=== PATIENT | female | born 1990 | race Caucasian/White ===

== ENCOUNTER → 2018-07-13 | Outpatient (CLI) | payer BC | LOC: DL.US 10:53 | PROVIDERS: ATTEND Family Medicine | DX: Z34.82 Encounter for supervision of other normal pregnancy, second trimester (principal); Z3A.20 20 weeks gestation of pregnancy | CPT/HCPCS: 76805 ==

== ENCOUNTER 2018-11-28 07:40 | Inpatient (IN) | payer BC ==
[2018-11-28] MEDS ORDERED: Tranexamic Acid 1,000 MG in Sodium Chloride 0.9% 100 ML IV PRN (09:45)
[2018-11-28] MEDS ORDERED: Sodium Chloride 0.9% 10 ML Syringe FLUSH PRN (09:45)
[2018-11-28] MEDS ORDERED: Lidocaine 1% 30 ML SDV INJECT PRN (09:45)
[2018-11-28] MEDS ORDERED: Carboprost Tromethamine 250 MCG/1 ML Amp IM PRN (09:45)
[2018-11-28] MEDS ORDERED: Misoprostol 400 MCG (4 X 100 MCG TAB) RECTAL PRN (09:45)
[2018-11-28] MEDS ORDERED: Oxytocin/Normal Saline 30 UNIT/500 ML BAG IV SCH (09:45)
[2018-11-28] MEDS ORDERED: Methylergonovine 0.2 MG/1 ML Amp IM PRN (09:45)
[2018-11-28] MEDS ORDERED: Lactated Ringers 500 ML IV ONE (09:45)
[2018-11-28] MEDS ORDERED: Ondansetron 4 MG/2 ML SDV IV PRN (09:45)
[2018-11-28] MEDS ORDERED: Lactated Ringers 1,000 ML IV SCH (09:45)
[2018-11-28] MEDS ORDERED: Nalbuphine 10 MG/1 ML Vial IM ONE ×2 (09:49→12:26)
--- NOTE | 2018-11-28 13:44 | HP ---
CHIEF COMPLAINT: Increased force and frequency of contractions. HISTORY OF PRESENT ILLNESS: A 27-year-old, 2, para 1-0-0-1, currently at 39-5/7 weeks' intrauterine based on last menstrual period, who presented to Labor and Delivery earlier this morning reporting onset of contractions around 2 o'clock this morning. A small amount of blood in the spotting. No heavy bleeding. No leakage of fluid. Good movement. Contractions reported every 5 to 10 minutes. Upon arrival, [place] showed her with contractions actually every 3 to 5 minutes, and she was admitted initially to observation and was making positive cervical change, admitted to Labor and Delivery with confirmed active stage I labor. No symptoms of preeclampsia. No other acute concerns. PAST MEDICAL HISTORY: Varicose veins, varicella equivocal, blood type A positive, rubella immune, group B strep negative, history of postanesthesia urinary retention, acne rosacea, depression and anxiety, and history of mono. LABORATORY DATA: Blood type A positive. Antibody screen negative. Rubella immune. Syphilis serology nonreactive. Urine culture, multiple isolates. Hepatitis B negative. HIV negative. Gonorrhea and chlamydia negative. TSH normal at 0.87. Hepatitis C nonreactive. Wet prep positive for yeast and treated. Glucose tolerance test normal at 103 and group B strep test is negative. PRIOR OBSTETRICAL HISTORY: Delivered [birth year]/11/2016 at 40-3/7 weeks' gestation, term male infant, weighing 3320 g, 7 pounds 5.1 ounces with epidural anesthesia. He was born in [place] with Dr. Zofia Olguin and there were no complications. care this has been excellent. The patient weaned off her Zoloft about 1 month ago and has had no other new acute problems. PAST SURGICAL HISTORY: Appendectomy and ovarian cyst removal. FAMILY HISTORY: Mother with thyroid disease. Father, no known diseases. Maternal grandfather with heart disease and diabetes. Maternal grandmother, no known diseases. Brother and 1 sister, no known diseases. Other sister, labor. Paternal grandmother with colon cancer. Paternal grandfather with heart disease. Maternal aunt with thyroid disease. Cousins on the father of the baby's side with multiple births. Another cousin with labor. Another sister with no known diseases. No family history of any defects, anesthesia problems, bleeding problems, clotting disorder, cystic fibrosis, seizures, or Down syndrome. SOCIAL HISTORY: The patient is . They have 1 son together. 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 , Neeraj, is a loan secretary at [employer]. They do not have any indoor pets. MEDICATIONS: vitamin. ALLERGIES: Bactrim causes a rash. REVIEW OF SYSTEMS: No headaches, blurry vision, hearing or visual abnormalities, chest pain, shortness of breath, fever, chills, nausea, vomiting, diarrhea, constipation, skin rashes, or other acute concerns. PHYSICAL EXAMINATION: Vital Signs: Temperature 98.2, pulse 80, blood pressure 138/72, respiratory rate of 18, O2 saturations 98% on room air. HEENT: Grossly unremarkable. Neck: Supple without adenopathy. Heart: Regular without murmur. Lungs: Clear to auscultation bilaterally. Abdomen: Gravid, soft, nontender. Baby is vertex. heart tones are at baseline of 125 beats per minute. Moderate [id number] variability. Excellent accelerations. [place] shows contractions about every 2 to 4 minutes. Varying strength. Cervix at this time 7 cm dilated, 90% effaced, +1 station. Bag of water is intact. Extremities: No edema, erythema, or tenderness. ASSESSMENT: 1. Active stage I labor. 2. 2, para 1-0-0-1, at 39-5/7 weeks. 3. Blood type A positive, rubella immune, group B strep negative. 4. History of postanesthesia urinary retention. 5. Varicella equivocal. 6. History of anxiety and depression. PLAN: Allow her to continue through natural labor at this time and allow the bag of water to remain intact as part of her pain management. Nubain when appropriate. Discussed with Anesthesia, and the patient may have a nonnarcotic containing intrathecal which will be less effective, however, would still provide some relief if needed. Otherwise, we will be anticipating a vaginal delivery. We will change the plan as needed if problems or concerns should arise. May end up with artificial rupture when she is further along in labor if it will expedite things without causing expectation of increased pain. [facility] /[id number] MTDJoselyn
[2018-11-28] MEDS ORDERED: Benzocaine/Menthol 20%-0.5% Spray 56 GM Canister TOP PRN (16:31)
[2018-11-28] MEDS ORDERED: Simethicone 80 MG Tab.Chew PO PRN (16:31)
[2018-11-28] MEDS: Docusate Sodium 100 MG Cap PO PRN (19:16)
[2018-11-28] MEDS: Ibuprofen 800 MG Tab PO PRN (19:17)
[2018-11-28] MEDS: Acetaminophen 325 MG Tab PO PRN (23:32)
--- NOTE | 2018-11-29 02:23 | DEL ---
DATE: 11/28/2018 PREPROCEDURE DIAGNOSES: 1. Active stage I labor. 2. 2, para 1-0-0-1, at 39 and 5/7 weeks. 3. Blood type A positive, rubella immune, group B strep negative. 4. History of post-anesthesia urinary retention. 5. Varicella equivocal. 6. History of anxiety and depression. POSTPROCEDURE DIAGNOSES: 1. Active stage I labor. 2. 2, now para 2-0-0-2, at 39 and 5/7 weeks. 3. Blood type A positive, rubella immune, group B strep negative. 4. History of post-anesthesia urinary retention. 5. Varicella equivocal. 6. History of anxiety and depression. 7. Status post spontaneous vaginal delivery with only Nubain for pain management. 8. Second-degree perineal laceration and left-sided vaginal sidewall laceration with bleeding varicose vein. BRIEF HISTORY: A 27-year-old female with the above-listed diagnoses, presented to the hospital with spontaneous onset of labor, allowed her to progress naturally. She did have 1 dose of IM Nubain for pain management and contractions became irregular, so a small amount of Pitocin was added to regulate the contraction pattern. After that, she went on to spontaneous rupture of membranes with clear fluid after being about 9 cm and was tolerating things well. I was then called over for delivery as the patient was starting to involuntarily push, and after about 3 contractions, she had a successful vaginal delivery as detailed below. DETAILS: With the patient in dorsal lithotomy position, she delivered a viable female infant in the TRENT position over intact perineum. Baby was dried, stimulated, and placed up on mother's abdomen. Three-vessel umbilical cord was doubly clamped and cut, and cord blood sample obtained. Labia and vagina inspected, and she was found to have a second-degree laceration, which was anesthetized with lidocaine. Vaginal sidewall laceration was also identified with a bleeding varicosity, so this area was anesthetized and addressed to make it hemostatic. The sidewall laceration was repaired with a 3-0 Vicryl figure-of - eight suture to control bleeding and then a running suture with 3-0 Vicryl in the usual fashion. Placenta was then delivered by gentle cord traction and concomitant uterine massage, inspected, and intact. Second-degree perineal laceration was then repaired in usual fashion with 3-0 Vicryl, and the patient tolerated all of the procedures well. ESTIMATED BLOOD LOSS: 500 mL. COMPLICATIONS: None. FINDINGS: Viable female . Weight 4070g and Apgars 9 and 9. DISPOSITION: Mother and baby to stay in the room to initiate . [facility] /[id number] MTDJoselyn
[2018-11-29] MEDS: Ibuprofen 800 MG Tab PO PRN ×3 (03:25→20:53)
[2018-11-29] MEDS: Docusate Sodium 100 MG Cap PO PRN ×2 (09:06→20:53)
[2018-11-29] MEDS: Prenatal Multivitamin with Calcium/Folic Acid/Iron Tab PO SCH (09:06)
[2018-11-29] MEDS: Ferrous Sulfate 325 MG Tab PO SCH (09:06)
[2018-11-29] MEDS: Acetaminophen 325 MG Tab PO PRN (09:09)
--- NOTE | 2018-11-29 11:17 | PN ---
DATE: 11/29/2018 SUBJECTIVE: Postvaginal delivery day #1, doing well, ambulating tolerating regular diet, voiding without difficulties. Has not had a bowel movement. Reports pain is well controlled and less intense than after her first delivery. She is very happy with how things are going so far. Currently, having some difficulties with . Reports baby does not really open her mouth sufficiently, and then when she does get on the nipple, she tends to bite, and the patient is starting to have some nipple pain. Otherwise, denies any concerns. No shortness of breath or chest pain. Bleeding has been minimal. No foul-smelling drainage. No uterine tenderness. No other concerns. OBJECTIVE: Vital Signs: Temperature is 98.3, pulse 87, blood pressure 113/80, respiratory rate of 16. Heart: Regular without murmur. Lungs: Clear to auscultation bilaterally. Abdomen: Soft, nontender. Fundus is firm and below the umbilicus. Extremities: No edema, erythema, or tenderness. ASSESSMENT: 1. Status post vaginal delivery day #1. 2. 2, now para 2-0-0-2. 3. History of depression and anxiety, currently doing well. 4. Varicella equivocal. 5. Status post vaginal delivery with second-degree vaginal laceration repairs. PLAN: Continue routine cares. Anticipate discharge home tomorrow. We will be requesting a window covering sales consultant to stop by with her today and help her with getting baby to latch more sufficient. Mother's questions answered. [facility] /[id number]
[2018-11-30] MEDS: Ibuprofen 800 MG Tab PO PRN (08:30)
[2018-11-30] MEDS: Prenatal Multivitamin with Calcium/Folic Acid/Iron Tab PO SCH (08:30)
[2018-11-30] MEDS: Ferrous Sulfate 325 MG Tab PO SCH (08:30)
[2018-11-30] MEDS: Docusate Sodium 100 MG Cap PO PRN (08:30)
== END 2018-11-30 11:20 | disposition home or self-care (01) | DRG 560 ==
LOC: DL.OBCHECK 07:40 → DL.OB 08:34 → UNDOADMOB 08:34 → DL.OB 09:45 → UNDOADMOB 09:46 → DL.OB 09:46 → OBSVTOIN 15:53 → DL.MS 11-29 02:02
PROVIDERS: ADMIT Family Medicine; ATTEND Family Medicine
PROC: 10E0XZZ Delivery of Products of Conception, External Approach (ICD-10-PCS; principal; 2018-11-28)
PROC: 3E033VJ Introduction of Other Hormone into Peripheral Vein, Percutaneous Approach (ICD-10-PCS; 2018-11-28)
PROC: 0KQM0ZZ Repair Perineum Muscle, Open Approach (ICD-10-PCS; 2018-11-28)
DX: O70.1 Second degree perineal laceration during delivery (principal); Z37.0 Single live birth; Z3A.39 39 weeks gestation of pregnancy; Z90.49 Acquired absence of other specified parts of digestive tract; Z88.1 Allergy status to other antibiotic agents
CPT/HCPCS: 36415; 59409; 85027; A9270-GY; J2300; J2590; J7120

== ENCOUNTER 2023-08-01 00:38 | Inpatient (IN) | payer BC ==
[2023-08-01] MEDS ORDERED: Carboprost Tromethamine 250 MCG/1 ML Amp IM PRN ×2 (08:00→13:56)
[2023-08-01] MEDS ORDERED: fentaNYL 100 MCG/2 ML SDV IVPUSH PRN (08:00)
[2023-08-01] MEDS ORDERED: Acetaminophen 325 MG Tab PO PRN (08:00)
[2023-08-01] MEDS ORDERED: Misoprostol 400 MCG (4 X 100 MCG TAB) RECTAL PRN ×2 (08:00→13:56)
[2023-08-01] MEDS ORDERED: Ondansetron 4 MG/2 ML SDV IVPUSH PRN (08:00)
[2023-08-01] MEDS ORDERED: Tranexamic Acid 1,000 MG in Sodium Chloride 0.9% 100 ML IV PRN (08:00)
[2023-08-01] MEDS ORDERED: Sodium Chloride 0.9% 10 ML Syringe FLUSH PRN ×2 (08:00→13:56)
[2023-08-01] MEDS ORDERED: Methylergonovine 0.2 MG/1 ML Amp IM PRN (08:00)
[2023-08-01] MEDS ORDERED: Oxytocin/Normal Saline 30 UNIT/500 ML BAG IV SCH (08:00)
[2023-08-01 09:24] LABS: HEMATOCRIT 39.7 % (37.0-47.0); HEMOGLOBIN 13.8 g/dL (12.0-16.0); MEAN CORPUSCULAR HEMOGLOBIN 33.3 pg (27.0-34.0); MEAN CORPUSCULAR HGB CONC 34.8 g/dL (33.0-35.0); MEAN CORPUSCULAR VOLUME 95.7 fL (80-100); RED BLOOD CELL COUNT 4.15 10^6/uL (4.2-5.4); WHITE BLOOD CELL COUNT,WBC 6.3 10^3/uL (5.0-10.0)
[2023-08-01] MEDS: Lactated Ringers 1,000 ML IV SCH (09:29)
[2023-08-01] MEDS: Oxytocin/Normal Saline 30 UNIT/500 ML BAG IV SCH (09:31)
[2023-08-01 13:26] LABS: CREATININE,URINE RAND 33.55 mg/dL (No establ ref range)
[2023-08-01 13:29] LABS: PROTEIN,URINE RANDOM < 6.0 mg/dL (0.0-11.9)
[2023-08-01] MEDS ORDERED: Hydrocortisone 2.5% Crm 30 GM Tube TOP PRN (13:56)
[2023-08-01] MEDS ORDERED: Oxytocin 10 Units/1 ML SDV IM PRN (13:56)
[2023-08-01] MEDS ORDERED: Simethicone 80 MG Tab.Chew PO PRN (13:56)
[2023-08-01] MEDS: Witch Hazel Medicated Pads 100/Jar TOP PRN (13:58)
[2023-08-01] MEDS: Ibuprofen 800 MG Tab PO SCH (13:58)
[2023-08-01] MEDS: Benzocaine/Menthol 20%-0.5% Spray 78 GM Cannister TOP PRN (13:58)
[2023-08-01] MEDS ORDERED: Labetalol 20 MG/4 ML Syringe IVPUSH PRN (15:30)
[2023-08-01 16:03] LABS: CREATININE 0.72 mg/dL (0.55-1.02); EST CRCL DRUG DOSING (CG) 111.1 mL/min; URIC ACID 5.7 mg/dL (2.6-6.0)
[2023-08-01] MEDS: Lactated Ringers 1,000 ML IV ONE (17:13)
[2023-08-01] MEDS: Lidocaine 1% 30 ML SDV INJECT ONE (17:13)
[2023-08-01] MEDS ORDERED: Acetaminophen/HYDROcodone 325-5 MG Tab PO PRN (18:09)
[2023-08-01] MEDS: Misoprostol 400 MCG (4 X 100 MCG TAB) PO ONE (18:57)
[2023-08-01] MEDS: Tranexamic Acid 1,000 MG in Sodium Chloride 0.9% 100 ML IV PRN (18:58)
[2023-08-01 19:12] LABS: INR 0.9 (0.9-1.2); PROTHROMBIN TIME 9.3 SEC (9.0-12.0); PTT,PARTIAL THROMBOPLSTIN TIME 25.4 SEC (22.0-34.0)
[2023-08-01] MEDS: Acetaminophen 325 MG Tab PO PRN (19:42)
[2023-08-01] MEDS: Labetalol 100 MG Tab PO SCH (19:42)
[2023-08-01] MEDS: Docusate Sodium 100 MG Cap PO PRN (22:12)
[2023-08-02 07:44] LABS: HEMOGLOBIN 11.8 g/dL (12.0-16.0)
[2023-08-02] MEDS: Prenatal Multivitamin with Calcium/Folic Acid/Iron Tab PO SCH (16:13)
[2023-08-02] MEDS: Ferrous Sulfate 325 MG Tab PO SCH (16:14)
[2023-08-02] MEDS: Labetalol 100 MG Tab PO SCH (16:14)
== END 2023-08-02 15:36 | disposition home or self-care (01) | DRG 560 ==
LOC: EDSTATUS 06:49 → DL.OB 08:10 → OBSVTOIN 13:28 → DL.OB 13:28
PROVIDERS: ADMIT Family Medicine; ATTEND Family Medicine
PROC: 10E0XZZ Delivery of Products of Conception, External Approach (ICD-10-PCS; principal; 2023-08-01)
PROC: 10907ZC Drainage of Amniotic Fluid, Therapeutic from Products of Conception, Via Natural or Artificial Opening (ICD-10-PCS; 2023-08-01)
PROC: 3E033VJ Introduction of Other Hormone into Peripheral Vein, Percutaneous Approach (ICD-10-PCS; 2023-08-01)
DX: O48.0 Post-term pregnancy (principal); O99.344 Other mental disorders complicating childbirth; F32.A Depression, unspecified; Z3A.40 40 weeks gestation of pregnancy; Z37.0 Single live birth; O70.0 First degree perineal laceration during delivery; O99.814 Abnormal glucose complicating childbirth
CPT/HCPCS: 36415; 59409; 82565; 82570; 82947; 84156; 84450; 84460; 84520; 84550; 85018; 85027; 85049; 85384; 85610; 85730; A9270-GY; J2590; J3490; J7120